=== PATIENT | male | born 2000 | race Caucasian/White ===

== ENCOUNTER 2023-12-06 14:27 | Inpatient (IN) | payer MEDICAID, OTHER ==
[~2023-12-06] VITALS: Ht 162.6 cm; Wt 58.2 kg
[2023-12-06 15:28] LABS: BASOPHILS % (AUTO) 0.3 % (0.0-2.0); EOSINOPHILS % (AUTO) 0.3 % (1.0-6.0); HEMATOCRIT 46.9 % (41-53); HEMOGLOBIN 15.6 g/dL (13.5-17.5); LYMPHOCYTES # (AUTO) 0.6 K/uL (1.0-4.8); LYMPHOCYTES % (AUTO) 12.6 % (22.0-44.0); MEAN CORPUSCULAR HEMOGLOBIN 30.2 pg (26.0-34.0); MEAN CORPUSCULAR HGB CONC 33.2 G/dL (31.0-37.0); MEAN CORPUSCULAR VOLUME 91 fL (80-100); MONOCYTES # (AUTO) 0.2 K/uL (0.1-1.0); MONOCYTES % (AUTO) 3.6 % (2.0-9.0); NEUTROPHILS # (AUTO) 3.8 K/uL (1.8-7.7); NEUTROPHILS % (AUTO) 83.2 % (40.0-70.0); PLATELET COUNT (AUTO) 106 K/uL (150-450); RED BLOOD CELL COUNT(AUTO) 5.17 MIL/uL (4.50-5.90); RED CELL DISTRIBUTION WIDTH 13.1 % (11.5-14.5); WHITE BLOOD COUNT (AUTO) 4.5 K/uL (4.5-11.0)
[2023-12-06 15:30] LABS: COVID AG,FIA SOURCE NASAL SWAB
[2023-12-06 15:38] LABS: ANION GAP 9 mmol/L (8-16); CALCIUM, TOTAL 9.4 mg/dL (8.8-10.5); CARBON DIOXIDE 28 mmol/L (22-29); CHLORIDE 105 mmol/L (98-107); CREATININE 0.89 mg/dL (0.60-1.30); GLOMERULAR FILTR. RATE CALC > 60 mL/min (>60); GLUCOSE,RANDOM 99 mg/dL (70-110); POTASSIUM 3.9 mmol/L (3.5-5.1); SODIUM SERUM 142 mmol/L (136-145); UREA NITROGEN, BLOOD 10 mg/dL (7-18)
[2023-12-06] MEDS ORDERED: HALOPERIDOL 5 MG TABLET PO PRN (15:45)
[2023-12-06 15:47] LABS: ALCOHOL, BLOOD (SERUM) < 3 mg/dL (0-10)
[2023-12-06 15:56] LABS: PH,URINE DRUG SCREEN 6.5 (5.0-8.0)
[2023-12-06 15:57] LABS: SARS-COV2 (COVID) ANTIGEN,FIA Negative (Negative)
[2023-12-06 16:02] LABS: AMPHET/METH SCREEN,URINE NEGATIVE (NEGATIVE); BARBITURATE SCREEN, URINE NEGATIVE (NEGATIVE); BENZODIAZEPINES SCREEN,URINE NEGATIVE (NEGATIVE); CANNABINOID SCREEN,URINE POSITIVE (NEGATIVE); COCAINE SCREEN,URINE NEGATIVE (NEGATIVE); METHADONE SCREEN, URINE NEGATIVE (NEGATIVE); OPIATE SCREEN,URINE NEGATIVE (NEGATIVE); PHENCYCLIDINE SCREEN,URINE NEGATIVE (NEGATIVE)
[2023-12-06 16:09] LABS: ALCOHOL, URINE DRUG SCREEN NEGATIVE (NEGATIVE)
[2023-12-06] MEDS: LORazepam 2 MG TABLET PO ONE (16:37)
[2023-12-06] MEDS: ACETAMINOPHEN 500 MG TABLET PO ONE (16:37)
[2023-12-06 20:24] VITALS: BP 131/84; PULSE 68; RESP 18; TEMP 97.3; O2SAT 97
[2023-12-06] MEDS: ZOLPIDEM TARTRATE 10 MG TABLET PO PRN (21:48)
[2023-12-07 08:24] VITALS: BP 154/64; PULSE 80; RESP 17; TEMP 97.9; O2SAT 98
[2023-12-07] MEDS: LORazepam 2 MG TABLET PO PRN (14:25)
[2023-12-07] MEDS ORDERED: ALBUTEROL SULFATE HFA 90 MCG/PUFF 8 GM INHALER IH PRN (14:45)
[2023-12-07] MEDS ORDERED: IBUPROFEN 600 MG TABLET PO PRN (14:45)
[2023-12-07] MEDS ORDERED: MAGNESIUM HYDROXIDE SUSPENSION 30 ML UDCUP PO PRN (14:45)
[2023-12-07] MEDS ORDERED: PETROLATUM,WHITE 28 GM JELLY TP PRN (14:45)
[2023-12-07] MEDS ORDERED: CloNIDine HCL 0.1 MG TABLET PO PRN (14:45)
[2023-12-07] MEDS ORDERED: LOPERAMIDE HCL 2 MG CAPSULE PO PRN (14:45)
[2023-12-07] MEDS ORDERED: ONDANSETRON HCL 4 MG TABLET PO PRN (14:45)
[2023-12-07] MEDS ORDERED: DOCUSATE SODIUM 100 MG CAPSULE PO PRN (14:45)
[2023-12-07] MEDS ORDERED: MAG HYDROX/ALUMINUM HYD/SIMETH ES 30 ML SUSPENSION UDCUP PO PRN (14:45)
[2023-12-07] MEDS ORDERED: ACETAMINOPHEN 325 MG TABLET PO PRN (14:45)
[2023-12-07] MEDS ORDERED: OMEPRAZOLE 20 MG CAPSULE PO PRN (14:45)
[2023-12-07] MEDS ORDERED: BENZOCAINE/MENTHOL LOZENGE PO PRN (14:45)
[2023-12-07] MEDS ORDERED: BACITRACIN 28 GM OINTMENT TP PRN (14:45)
[2023-12-07] MEDS: NICOTINE 21 MG/24 HOUR PATCH TD SCH (16:31)
[2023-12-07 21:39] VITALS: BP 131/76; PULSE 80; RESP 17; TEMP 97.9; O2SAT 98
[2023-12-08 09:52] VITALS: BP 124/77; PULSE 90; RESP 17; TEMP 98.3; O2SAT 100
[2023-12-08 10:37] VITALS: BP 124/77
[2023-12-08 20:27] VITALS: BP 125/91; PULSE 93; TEMP 97.2; O2SAT 97
[2023-12-09 09:20] VITALS: BP 109/69; PULSE 98; RESP 18; TEMP 98.4; O2SAT 98
[2023-12-09] MEDS: DIVALPROEX SODIUM 500 MG DR TABLET PO SCH (09:31)
[2023-12-09] MEDS: FLUoxetine HCL 20 MG CAPSULE PO SCH (09:31)
[2023-12-09 21:11] VITALS: BP 127/72; PULSE 109; RESP 18; TEMP 98.5; O2SAT 98
[2023-12-10 08:40] VITALS: BP 114/67; PULSE 67; RESP 17; TEMP 98; O2SAT 98
[2023-12-10 13:54] VITALS: BP 143/86
[2023-12-10 20:00] VITALS: BP 130/80; PULSE 69; RESP 18; TEMP 97.6; O2SAT 97
[2023-12-11 08:48] VITALS: BP 127/64; PULSE 100; RESP 16; TEMP 97.7; O2SAT 96
[2023-12-11] MEDS ORDERED: FLUO-418 PO (09:22)
[2023-12-11] MEDS ORDERED: DIVA-112 PO (09:23)
== END 2023-12-11 12:30 | disposition home or self-care (01) | DRG 753 ==
LOC: EMS 14:34 → B2S 16:47
PROVIDERS: ADMIT Psychiatry & Neurology Psychiatry; ATTEND Psychiatry & Neurology Psychiatry
DX: F31.9 Bipolar disorder, unspecified (principal); R45.851 Suicidal ideations; F41.9 Anxiety disorder, unspecified; Z20.822 Contact with and (suspected) exposure to COVID-19; G47.00 Insomnia, unspecified; K59.00 Constipation, unspecified; F10.90 Alcohol use, unspecified, uncomplicated; F14.90 Cocaine use, unspecified, uncomplicated; E73.9 Lactose intolerance, unspecified
CPT/HCPCS: 80048; 80307; 85025; 87081; G0480